=== PATIENT | female | born 1985 | race Caucasian/White ===

== ENCOUNTER 2021-12-13 08:27 | Day surgery (SDC) | payer BC ==
[2021-12-06 11:29] LABS: BASOPHILS % (AUTO) 0.6 % (0-1); EOSINOPHILS % (AUTO) 0.9 % (0-6); MEAN CORPUSCULAR HEMOGLOBIN 33.4 PG (27.0-31.0); MEAN CORPUSCULAR HGB CONC 34.9 g/dL (33.0-36.5); MEAN CORPUSCULAR VOLUME 95.6 FL (78-98); MEAN PLATELET VOLUME 7.3 FL (7.4-10.4); MONOCYTES % (AUTO) 7.3 % (2-12); NEUTROPHILS # (AUTO) 4.4 X10'3 (1.8-7.7); NEUTROPHILS % (AUTO) 58.2 % (42-75); PRE OP HEMATOCRIT 38.1 % (35.0-45.0); PRE OP HEMOGLOBIN 13.3 g/dL (12.0-16.0); PRE OP PLATELET COUNT 324 X10'3 (140-440); RED BLOOD COUNT 3.98 X10'6 (4.20-5.60); RED CELL DISTRIBUTION WIDTH 12.3 % (11.5-14.5)
[2021-12-06 11:30] LABS: EOSINOPHILS # (AUTO) 0.1 X10'3 (0-0.9); LYMPHOCYTES # (AUTO) 2.5 X10'3 (1.1-4.8); MONOCYTES # (AUTO) 0.5 X10'3 (0-0.9)
[2021-12-06 11:40] LABS: HCG SERUM QL NEGATIVE
[2021-12-06 11:43] LABS: ALBUMIN 4.4 G/DL (3.4-5.0); ALBUMIN/GLOBULIN RATIO 1.4 (1.1-1.5); ALKALINE PHOSPHATASE 40 IU/L (46-116); BLOOD UREA NITROGEN 11 MG/DL (7-18); BUN/CREATININE RATIO 19.3 (6.6-38.0); CALCIUM 9.2 MG/DL (8.5-10.1); CHLORIDE 105 MMOL/L (99-107); CREATININE 0.57 MG/DL (0.40-0.90); PRE OP ALT 24 U/L (30-65); PRE OP ANION GAP 9 (8-16); PRE OP AST 17 U/L (10-37); PRE OP BILIRUB, TOTAL 0.5 MG/DL (0.0-1.0); PRE OP GLUCOSE 88 MG/DL (70-104); PRE OP POTASSIUM 3.6 MMOL/L (3.4-5.1); PRE OP SODIUM 142 MMOL/L (135-145); TOTAL CARBON DIOXIDE 28.1 MMOL/L (24-32); TOTAL PROTEIN 7.6 G/DL (6.4-8.2); eGFR > 90 ML/MIN
[2021-12-13] VITALS (10 sets, daily range): BP systolic 95–112; BP diastolic 62–77
[~2021-12-13] VITALS: Ht 154.9 cm; Wt 56.0 kg
[~2021-12-13 08:27] MED LIST: FLO0.4C PO; MULT-1180 PEG; ceFAZolin inj. 2,000 MG in dextrose 5%-water 100 ML IV ONE; famotidine 20mg tablet PO ONE; ringers solution, lacted 1,000 ML IV SCH
[2021-12-13] MEDS ORDERED: ondansetron/PF 4mg/2ml inj IV PRN (09:30)
[2021-12-13] MEDS ORDERED: morphine 2 MG/ML inj. syringe IV PRN (09:30)
[2021-12-13] MEDS ORDERED: fentaNYL/PF 50MCG/1 ML 2ML syringe IV PRN ×2 (09:30)
[2021-12-13] MEDS ORDERED: labetalol 20mg/4ml (5mg/ml) syringe IV PRN (09:30)
[2021-12-13] MEDS ORDERED: morphine 4 MG/ML inj SYRINge IV PRN (09:30)
[2021-12-13] MEDS ORDERED: hydrALAZINE 20mg/ml inj. IV PRN (09:30)
[2021-12-13] MEDS ORDERED: ringers solution, lacted 1,000 ML IV SCH (09:30)
--- NOTE | 2021-12-13 09:30 | NUR ---
REPORT GIVEN TO JUAN EDWARDS WHO ASSUMES CARE OF PT. PT CURRENTLY AWAITING SURGERY WITH HSB AT THE BEDSIDE. IV PATENT, NO COMPLAINTS
[2021-12-13] MEDS ORDERED: BUPIVAcaine/PF 2.5 mg/ml (0.25%) 30ml vial ONE (10:12)
[2021-12-13] MEDS ORDERED: fentaNYL/PF 50MCG/1 ML 2ML syringe ONE (10:22)
[2021-12-13] MEDS ORDERED: midazolam 1 mg/ML 2ml injection ONE (10:22)
[2021-12-13] MEDS ORDERED: LIDOcaine 1%/PF 5ML 10 MG/ML VIAL ONE (10:23)
[2021-12-13] MEDS ORDERED: propofol inj 20 ML IV ONE (10:23)
[2021-12-13] MEDS ORDERED: ondansetron/PF 4mg/2ml inj ONE (10:23)
[2021-12-13] MEDS ORDERED: rocuronium 10mg/ml inj IV ONE (10:24)
--- NOTE | 2021-12-13 11:15 | NUR ---
Received from OR via [facility], accompanied by Anesthesiologist DR RUGGIERO and report given by Anesthesiolgist. PT PRESNTS WITH 20G RIGHT HAND, ABD DRESSING FRANCES, VSS. Addendum: 12/13/21 at 1128 by Ashley Alicia RN, RN Amended: Links added.
--- NOTE | 2021-12-13 12:45 | NUR ---
PATIENT DISCHARGED FROM PACU IN STABLE CONDITION AFTER WRITTEN AND VERBAL DISCHARGE INSTRUCTIONS GIVEN. PATIENT GAVE VERBAL UNDERSTANDING OF INSTRUCTIONS GIVEN. PATIENT LEFT FACILITY VIA WHEELCHAIR WITH RN. Addendum: 12/13/21 at 1302 by Ashley Alicia RN RN Amended: Links added.
== END 2021-12-13 12:45 | disposition home or self-care (01) ==
LOC: PAS 08:27
PROVIDERS: ATTEND Obstetrics & Gynecology
DX: Z30.2 Encounter for sterilization (principal); Z79.899 Other long term (current) drug therapy; Z98.890 Other specified postprocedural states; Z87.442 Personal history of urinary calculi
CPT/HCPCS: 36415; 58670; 80053; 82948; 84703; 85025; 87811; J0690; J2250; J2405; J2704; J3010; J3490; J7060; J7120; Z7506; Z7512; A4618; A7000